=== PATIENT | male | born 1960 | race Caucasian/White ===

== ENCOUNTER 2024-12-24 12:00 | Inpatient (IN) | payer SELFPAY ==
[2024-12-24] VITALS (15 sets, daily range): BP systolic 149–227; BP diastolic 80–116; PULSE 72–97; RESP 14–20; TEMP 36.4–36.8; O2SAT 96–100; BMI 31.5
--- NOTE | ~2024-12-24 | XR_ITS ---
XR abdomen/kub 1V Ordering provider: Ally May III, DO History: . constipation . Comparison: None. FINDINGS: BOWEL: Nonobstructive bowel gas pattern. ORGANOMEGALY: None. SIGNIFICANT PATHOLOGIC CALCIFICATIONS: None. OTHER: No free air is seen under the diaphragm. IMPRESSION: NO ACUTE ABDOMINAL FINDINGS. Reviewed, dictated and finalized at location A.
--- NOTE | ~2024-12-24 | US_ITS ---
EXAMINATION: US renal BI DATE: 12/24/2024 19:22 INDICATION: acute renal failure TECHNIQUE: Multiple grayscale and Doppler ultrasound images of the kidneys were obtained. COMPARISON: None. FINDINGS: The right kidney measures 13.2 x 6.1 x 6.0 cm. The left kidney measures 12.8 x 7.3 x 5.6 cm. The kidn eys demonstrate normal parenchymal echogenicity. Anechoic, lobulated 1.6 cm lesion in the left kidney , with a 9 mm focus of wall echogenicity and twinkle artifact. There is no hydronephrosis. The bladde r is decompressed by Cuevas catheter. Incidental note of a liver hyperechogenicity IMPRESSION: No hydronephrosis. 1.6 cm indeterminate left renal lesion, possibly representing a cyst with wall calcification or adjac ent nephrolith. Recommend timely outpatient CT or MRI without and with contrast for complete evaluati on. Incidental note of and echogenic liver, most commonly due to steatosis but also can be seen with hepa titis and fibrosis Reviewed, dictated and finalized at location K. IMPRESSION: No hydronephrosis. 1.6 cm indeterminate left renal lesion, possibly representing a cyst with wall calcification or adjacent nephrolith. Recommend timely outpatient CT or MRI wit hout and with contrast for complete evaluation. Incidental note of and echogenic liver, most commonly due to steatosis but also can be seen with hepatitis and fibrosis
--- OUTSIDE RECORDS SUMMARY | 2024-12-24 12:03 | XMS_ITS | Clinical Summary ---
Author Organization [facility] [employer] Address [address] [place] [address] Care Team Providers Care Speaking Unit Assembler Name Role Phone Loraine Moss MD Primary Care Provider + Source Comments [facility],non-owned Affiliates and Associated Physician Practices is amultiple site organization consisting of ambulatory clinics and hospital sitesin [place], [place], [place] and [place]. This disclosure is being madepursuant to the Care Everywhere program and may not contain all information available regarding this patient. Last updated 18.[facility] [employer] Allergies No known active allergies Medications * Be aware that medications may not be up to date on this document. Alwaysverify current medications with the patient. 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 Gender Identity Not on file Sexual Orientation Not on file Last Filed Vital Signs Vital Sign Reading Time Taken Comments Blood Pressure 139/93 01/16/2018 1:10 PM CDT Pulse 71 01/16/2018 1:10 PM CDT Temperature 36.4 C (97.5 F) 01/16/2018 11:41 AM CDT Respiratory Rate 24 01/16/2018 1:10 PM CDT Oxygen Saturation 94% 01/16/2018 1:10 PM CDT Inhaled Oxygen Concentration - - Weight 102.1 kg (225 lb) 01/16/2018 11:39 AM CDT Height 180.3 cm (5' 11) 01/16/2018 11:39 AM CDT Body Mass Index 31.38 01/16/2018 11:39 AM CDT Plan of Treatment Health Maintenance Due Date Last Done Comments COLOGUARD (AGES 45-75) - COL ON CA SCREENING 1960 CT COLONOGRAPHY - COLON CA SCREENING 1960 FIT - COLON CA SCREENING 1960 FLEX SIG - COLON CA SCREENING 1960 LIPID TESTING 1960 HIV SCREENING 02/14/1975 HEPATITIS C SCREENING 02/10/1978 DTAP/TDAP/TD VACCINES (1 - Tdap) 02/14/1979 PNEUMOCOCCAL VACCINE 50+ (1 of 1 - PCV) 02/14/2010 ZOSTER VACCINE (1 of 2) 02/14/2010 SCREENING FOR DIABETES 01/17/2018 COLON MONITORING 01/16/2023 01/16/2018, 01/16/2018, 01/16/2018 Colorectal Cancer Screening 01/16/2023 COVID-19 VACCINE (1 - 2023-2 5 season) 2024 DEPRESSION SCREENING 06/13/2024 INFLUENZA VACCINE (#1) 2025 COLONOSCOPY - COLON CA SCREENING 01/17/2028 01/16/2018, 01/16/2018, 01/16/2018 Respiratory Syncytial Virus (RSV) Vaccine Pt: or over 60 yrs (1 - 1-dose 75+ series) 02/14/2035 HEPATITIS B VACCINE Aged Out No longe r eligible based on patient's age to complete this topic HIB VACCINE Aged Out No longer eligi ble based on patient's age to complete this topic HPV VACCINE Aged Out No longer eligi ble based on patient's age to complete this topic MENINGOCOCCAL (Group B) VACCINE SHARED DECISION-MAKING Aged Out No longer eligible based on patient's age to complete this topic MENINGOCOCCAL GROUPS A/C/Y/W VACCINE Aged Out No longer eligible b ased on patient's age to complete this topic Procedures Procedure Name Priority Date/Time Associated Diagnosis Comments ENDOSCOPY, COLON, SCREENING Routine 01/16/2018 12:21 PM CDT from Last 3 Months or Most Recently Relevant to Health Maintenance Results * ENDOSCOPY, COLON, SCREENING (01/16/2018 12:21 PM CDT) Report Endoscopy POC _ Patient Name: Bryon Rodney Procedure Date: 01/16/2018 12:21 PM Date of : 1960 Admit Type: Outpatient Age: 57 Gender: Male Attending MD: Cristopher Singleton MD _ Procedure: Colonoscopy Indications: Screening for colorectal malignant neoplasm Providers: Cristopher Singleton MD (Doctor), Marilynn Johnson, RN, Danica Estrada RN Referring MD: Loraine Moss MD (Referring MD) Medicines: Monitored Anesthesia Care Complications: No immediate complications. _ Procedure: Pre-Anesthesia Assessment: - ASA Grade Assessment: II - A patient with mild systemic disease. - Airway Examination: Mallampati Class I (tonsillar pillars visualized). After I obtained informed consent, the scope was passed under direct vision. Throughout the procedure, the patient's blood pressure, pulse, and oxygen saturations were monitored continuously. The Colonoscope was introduced through the anus and advanced to the cecum, identified by appendiceal orifice and ileocecal valve. The colonoscopy was performed without difficulty. The patient tolerated the procedure well. The quality of the bowel preparation was adequate. Impression: - Diverticulosis. - One 5 mm polyp in the cecum, removed with a hot snare. Resected and retrieved. - One 6 mm polyp in the ascending colon, removed with a hot snare. Resected and retrieved. - Two 5 mm polyps in the transverse colon, removed with a jumbo cold forceps. Resected and retrieved. Findings: Small-mouthed diverticula were found in the colon. A 5 mm polyp was found in the cecum. The polyp was sessile. The polyp was removed with a hot snare. Resection and retrieval were complete. Estimated blood loss: none. A 6 mm polyp was found in the ascending colon. The polyp was sessile. The polyp was removed with a hot snare. Resection and retrieval were complete. Estimated blood loss: none. Two sessile polyps were found in the transverse colon. The polyps were 5 mm in size. These polyps were removed with a jumbo cold forceps. Resection and retrieval were complete. Estimated blood loss: none. _ Recommendation: - Repeat colonoscopy in 5 years for surveillance based on pathology results. Procedure Code(s): --- Professional --- 48914, Colonoscopy, flexible; with removal of tumor(s), polyp(s), or other lesion(s) by snare technique 21546, 59, Colonoscopy, flexible; with biopsy, single or multiple --- Technical --- 54343, Colonoscopy, flexible; with removal of tumor(s), polyp(s), or other lesion(s) by snare technique 83883, 59, Colonoscopy, flexible; with biopsy, single or multiple Diagnosis Code(s): --- Professional --- Z12.11, Encounter for screening for malignant neoplasm of colon D12.0, Benign neoplasm of cecum D12.2, Benign neoplasm of ascending colon D12.3, Benign neoplasm of transverse colon (hepatic flexure or splenic flexure) K57.30, Diverticulosis of large intestine without perforation or abscess without bleeding --- Technical --- Z12.11, Encounter for screening for malignant neoplasm of colon D12.0, Benign neoplasm of cecum D12.2, Benign neoplasm of ascending colon D12.3, Benign neoplasm of transverse colon (hepatic flexure or splenic flexure) K57.30, Diverticulosis of large intestine without perforation or abscess without bleeding CPT copyright 2015 [employer]. All rights reserved. The codes documented in this report are preliminary and upon hydraulic design engineer review may be revised to meet current compliance requirements. Cristopher Singleton MD 01/16/2018 12:53:29 PM This report has been signed electronically. Number of Addenda: 0 Note Initiated On: 01/16/2018 12:21 PM [facility] ENDOSCOPY 01/16/2018 12:2 1 PM CDT us Cristopher Singleton MD GI PROCEDURE ORDERABLES Edited R esult - Final [facility] ENDOSCOPY from Last 3 Months or Most Recently Relevant to Health Maintenance Insurance Care Teams Speaking Unit Assembler Relationship Specialty Start Date End Date Loraine Moss MD PCP - General Internal Medicine 11/22/17
--- OUTSIDE RECORDS SUMMARY | 2024-12-24 12:03 | XMS_ITS | Data Portability ---
Author Organization [facility] [employer], [facility] Address [address] [place] [phone] Care Team Providers Care Cognos Bi Administrator Name Role Phone MUNIRA CAI Primary Care Provider Unavailabl e Assessment No assessment recorded. Plan of Treatment Reminders Order Date Submit Date Provider Last Modified By Organization Details Last Modified Time Details Appointments None recorded. Lab None recorded. Referral None recorded. Procedures None recorded. Surgeries None recorded. Imaging US, upper extremity, nonvascular 2016 017 Not available 7 06:07:24 XR, shoulder 2016 017 [email or web address] Not available 7 13:11:24 Medication Orders None recorded. Patient TargetsNo targets recorded. Patient Instructions Encounter Date Encounter Id Patient Instructions Last Modified By Organization Details Last Modified Time 09/28/2016 [id number] shoulder pain: c are instructions BERYL Not available 10/31/2016 05:01:20 After review of radiographic and examination findings, we discussed treatment options available. These included corticosteroid injection,bracing, observation, surgical referral, physical therapy, pain management, and/or stem cell treatment. The patient is definitely interested in non-surgical alternatives. If they choose to undergo stem cell biologic treatment, it is understood that it is considered investigational and off label use of the product by FDA, that it is not a covered benefit by insurance, and that there is no guarantee of symptom improvement. We reviewed the stem cell treatment and depth. Information packet was given to and reviewed with the patient. All questions were answered related to the procedure, post procedure expectations, and cost associated with treatment. We also discussed that sometimes more than one biologic treatment is required to attain desired efficacy. If opting to undergo biologic treatment, an order was given for laboratory studies to be completed. They will call our office if they desire to schedule an appointment for treatment or review any of the other treatment options discussed. Patient will also RTC or call for any worsening, questions or concerns prn. Bryon is opting to undergo prolonged treatment to the left shoulder. We will get him set up for such treatment and discuss costs associated with treatment. Not available 11/09/2016 04:40:39 09/29/2016 [id number] After review of examination findings, we discussed further treatment options and their risks, benefits, projected outcomes, and proposed rehabilitation. These options included: continued monitoring, corticosteroid injection, viscosupplementatio n, surgical referral, physical therapy, further diagnostic workup, pain management, and/or biologic treatment. We proceeded with Prolo tx to the left shoulder per procedural note above and with consent. He tolerated the procedure well. He will call in one week to report status or sooner prn. Repeat in one month prn. Not available 10/02/2016 05:46:54 11/09/2016 [id number] After review of examination findings, we discussed further treatment options and their risks, benefits, projected outcomes, and proposed rehabilitation. These options included: continued monitoring, corticosteroid injection, viscosupplementatio n, surgical referral, physical therapy, further diagnostic workup, pain management, and/or biologic treatment. Not available 12/10/2016 08:26:38 Reason for Referral None Reported. Problems Name Problem SNOMED Code Status Onset Date Resolution Date Notes Provider Name and Address Organization Details Recorded Time Ead cain 180422170 Active [address] [facility] [employer] 09/28/2016 11:54:21 Problem Notes None recorded. Procedures Surgical History Date Name Laterality Status Provider Name and Address Organization Details Recorded Time 09/30/19 17 Generic Procedure completed James Song [employer] 11/09/2016 04:42:08 06/13/19 01 Arthroscopic Surgery completed [employer]ise [employer] 09/28/2016 11:55:13 06/13/18 85 Arthroscopic Surgery completed [facility] 09/28/2016 11:54:58 Imaging Results None recorded. Procedure Notes None recorded. Medical Equipment None Reported. Allergies No known drug allergies Medications Name Sig Start Date Stop Date Status Note LastModified by Organization Details LastModified Time ipratropium bromide 42 mcg (0.06 %) nasal spray active Not Available Not Available Not Available Vitals Date Recorded Body height Body weight Body mass index (BMI) Heart rate Systolic And Diastolic Provider Name and Address Organization Details Last Updated DateTime 09/28/2016 180.34 cm 698183.2 8 g 31.4 kg/m2 73 /min 138/88 mm[Hg] Carly Moise [facility] 09/28/2016 11:06:36 Date Recorded Body height Body weight Body mass index (BMI) Heart rate Systolic And Diastolic Provider Name and Address Organization Details Last Updated DateTime 09/29/2016 180.34 cm 705158.2 8 g 31.4 kg/m2 65 /min 153/74 mm[Hg] Narciso Ar[facility] 09/29/2016 13:33:18 Date Recorded Body height Provider Name an d Address Organization Details Last Updated DateTime 11/09/2016 180.34 cm Narciso [facility] 11/10/2016 07:52:31 Social History None recorded. Functional Status None recorded. Mental Status None recorded. Family History Nothing Reported. Medical History Condition Response Sleep Disorder Y Past Encounters Encounter ID Performer Location Encounter Start Date Encounter Closed Date Diagnosis/Indication Diagnosis SNOMED-CT Code Diagnosis ICD10 Code Diagnosis Note [id number] Felipa Cantu MD [facility] [address] [place] [address] 09/28/2016 10:33:36 09/29/2016 13:11:24 Pain of shoulder region 21267730 M25.512 Left shoulder pain consistent with: Moderate glenohumer al and acromiocla vicular osteoarthr itis; Subscapula ris and supraspina tus and body port insertion of tendinosis with partial-th ickness tear; mild biceps tendinosis ; Subdeltoid bursitis; Status post shoulder arthroscop y capsular tightening . External rotation limitation s post surgical capsular reconstruc tion. Disorder o f rotator cuff 169574330 M75.102 Osteoarthr itis of shoulder region 76283331 M19.019 [id number] Felipa Cantu MD [facility] [address] [place] [address] 09/29/2016 13:21:16 10/06/2016 09:43:22 Rotator cuff syndrome 0942086 M75.102 left shoulder [id number] Felipa Cantu MD [facility] [address] [place] [id number] 11/09/2016 17:14:57 11/09/2016 18:30:02 Disorder of rotator cuff 807536256 M75.102 Health Concerns Section Related Observation LastModified by Organization Detai ls LastModified Time None Recorded Concern Status LastModified by Organization Details LastModified Time None Recorded Advance Directives Directive None Recorded Payers Insurance Date Sequence Insurance Name Policy Number Policy Boone Covered Member ID Boone Member ID Guarantor Name 11/06/2016 1 [employer] [id number] Bryon Rashaun [id number] Bryon Rodney Notes Date Note Type Note Provider Name and Address Organization Details Recorded Time 09/28/2016 text/html Bryon is a [facility] 56-year-old kpjhn-uvjt-okjtenic male who presents to clinic today for evaluation of left shoulder pain. Bryon is well-known to me. I have seen him before in my clinic office for treatment to his left knee. He has a chronic issue with his shoulder. He ssustained an injury to his shoulder in 1986 and had left shoulder arthroscopy. He did well after surgery but did have some instability issues. He saw a Dr. Edgard Vides, And he was undergoing prolotherapy with the left shoulder. He had approximately 40 therapy injections to the shoulder from 80 12/12/00. Then in 2000 he had joint capsular reconstruction surgery by Dr. Richter. Although he did well from a pain standpoint he did lose some mobility and his difficulty with external rotation activities since surgery. He has pain and grinding with overhead activity. He has a constant dull ache with intermittent sharp episodes of pain especially with extremes of range of motion. He is also starting to get some weakness associated with decreased shoulder. He is here essentially to be reevaluated and discussed the possibility of prolonged treatment to his shoulder. He did well with this in the past and he would like to start more conservative treatment as opposed to surgical intervention. LUIS Zurita [facility], [facility] 11/09/2016 04:40:44 09/29/2016 text/html No interval schuster ge - See last visit note James LUIS Hoff [facility], [facility] 11/09/2016 04:42:24 11/09/2016 text/html Here for second PROLO injection to the left shoulder. He has had some improvement from initial injection. Still with some pain with overhead activity and pushing off. LUIS Zurita [facility], [facility] 12/10/2016 08:27:52
--- OUTSIDE RECORDS SUMMARY | 2024-12-24 12:03 | XMS_ITS | Clinical Summary ---
Author Organization 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
--- OUTSIDE RECORDS SUMMARY | 2024-12-24 12:03 | XMS_ITS | Referral Summary ---
Author Organization [facility] Address [address] [place] [phone] Care Team Providers Care Database Tester Name Role Phone Loraine Moss MD Primary Care Provider [phone] Allergies No known active allergies Medications ondansetron ODT (ZOFRAN-ODT) 4 mg disintegrating tablet DISSOLVE ONE TABLET IN MOUTH EVERY 6 TO 8 HOURS NEEDED FOR NAUSEA 02/25/20 22 Active testosterone cypionate, micro (testosterone cyp, micro, bulk,) 100 % powder 0 04/05/20 22 Active testosterone cypionate, bulk, 100 % powder 0 04/05/20 22 Active ipratropium (ATROVENT) 42 mcg (0.06 %) nasal spray ipratropium bromide 42 mcg (0.06 %) nasal spray Active oxyCODONE-acetamin ophen (PERCOCET) 10-325 mg per tablet take 1 tablet by mouth every 4 to 6 hours as needed for pain, please take with sennakot-s or miralax or other stool softener daily while taking 02/25/20 22 Active doxycycline hyclate 100 mg capsule TAKE ONE CAPSULE BY MOUTH TWICE DAILY FOR 3 DAYS 02/25/20 22 Active Active Problems Problem Noted Date Diagnosed Date 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 Nares patent. Afrin added. 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
--- OUTSIDE RECORDS SUMMARY | 2024-12-24 12:03 | XMS_ITS | Clinical Summary ---
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 Gender Identity Not on file Sexual Orientation Not on file Obstetrics History Plan of Treatment Health Maintenance Due Date Last Done Comments Colon Cancer Screening-Colonoscopy 1960 Depression Screening 1960 Hepatitis C Screening 1960 Prostate Cancer Screening-PSA 1960 DTaP/Tdap/Td Vaccine (1 - Tdap) 02/14/1971 Hepatitis B Screening 02/14/1978 Regular Well Visit/Exam 18-64 02/14/1978 Zoster Vaccine (1 of 2) 02/14/2010 Covid-19 Vaccine (3 2023-2 5 season) 2024 10/31/2020, 10/09/2020 Influenza Vaccine (#1) 2025 Pneumococcal vaccine <65 Aged Out No longer eligible based on patient's age to complete this topic Care Teams Cleaner Laboratory Equipment Relationship Specialty Start Date End Date Loraine Moss MD [address] [place] [address] PCP - General Internal Medicine 04/06/22
--- OUTSIDE RECORDS SUMMARY | 2024-12-24 12:03 | XMS_ITS | Patient Health Record ---
Author Organization [facility] Address [address] [place], [place] [id number] Care Team Providers Care Ivf Embryologist Name Role Phone EMELY JOHNSON Unavailable [phone] Loraine Moss Unavailable Unavailable Reason For Referral No Information Medications Medication SIG (Take, Route, Frequency, Duration) Notes Start Date End Date Status ciclopirox 80 MG/ML Topical Solution [Pen[place] Nail Lacquer] ciclopirox 80 MG/ML Topical Solution [[place] Nail Lacquer]Original Medicationciclopirox 80 MG/ML Topical Solution [[place] Nail Lacquer] *Reorder from [place] for eRx and Interaction Alerts* 09/02/2017 Active Plan Of Treatment No Information Insurance Providers Payer Name Payer Address Payer Phone Subscriber Number Group Number Insured Name Patient Relationship to Insured Coverage Start Date Coverage End Date [facility] ATTN CLAIMS [address] [place] [address] [id number] MIRNA LEVI Self - patient is the insured
--- NOTE | 2024-12-24 12:23 | ED.NAVMDI ---
HPI - Nausea/Vomiting/Diarrhea General Chief complaint: Nausea/Vomiting/Diarrhea Stated complaint: poss uti Time Seen by Provider: 12/24/24 12:15 History of Present Illness HPI Narrative: Pt presents with intermittent urinary frequency and urgency and intermittent incontinence for a month. Pt tried to get into his PCP today but not able to get in. Pt also complains of dark stool several weeks ago but now brown but not regular and says they are hard now but does not feel constipated. Pt has als noted his BP is a little elevated lately. Related Data Allergies Allergy/AdvReac Type Severity Reaction Status Date / Time No Known Allergies Allergy Unverified 12/24/24 12:05 Review of Systems Review of Systems: All systems reviewed & are unremarkable except as noted in HPI and below PMFSH Past Medical History Medical History BPH (benign prostatic hyperplasia) Social History Social History Smoking status: Never smoker Alcohol intake: current Exam Const: General: healthy appearing and no acute distress Nutritional Appearance: well nourished Orientation/consciousness: patient oriented x3 Limitations: no limitations HENMT: Head: normal to inspection Throat: posterior oropharynx normal Neck: Neck: normal visual inspection Chest: Chest palpation & inspection: normal inspection of the chest Resp: Effort & Inspection: normal respiratory effort Auscultation: clear to auscultation bilaterally Cardio: Rate: regular rate Rhythm: regular rhythm GI: GI Palp: Yes Soft to palpation and Yes Tenderness to palpation present (GI) (minimal suprpubic) Auscultation: normal bowel sounds : General: Yes no CVA tenderness Back/Spine/Pelvis: Back: no CVA tenderness Skin: General skin exam: normal color Rashes: no rashes Wounds: no wounds Neuro: General: patient oriented x3, moves all extremities, no meningeal signs and no focal motor deficits Speech: normal speech Extrem: General: normal to inspection and no clubbing, cyanosis or edema Psych: Mental Status: mental status grossly normal Affect: normal affect Attitude: cooperative Course Vital Signs Vital signs: Vital Signs Temperature 97.6 F 12/24/24 12:01 Pulse Rate 95 12/24/24 12:01 Respiratory Rate 16 12/24/24 12:01 Blood Pressure 227/116 H 12/24/24 12:01 Pulse Oximetry 98 12/24/24 12:01 Temperature 97.5 F L 12/24/24 19:26 Pulse Rate 75 12/24/24 19:26 Respiratory Rate 18 12/24/24 19:26 Blood Pressure 149/88 H 12/24/24 19:26 Pulse Oximetry 98 12/24/24 19:26 Oxygen Delivery Room Air 12/24/24 12:33 MDM - Nausea/Vomiting/Diarrhea MDM Narrative Medical decision making narrative: Pt presents with urinary urgency and incontinence for a month. Pt does have BPH hx could be this but will make sure no UTI and check labs to assess renal function and a KUB to assess stool volume. Pt had 1600 ml in bladder on scan, chanel placed and drained 2 L quickly, chanel clamped, released 20 minutes later and another 300 ml and reclamped. discussed with Dr Dejesus and said can unclamp and let run, will consult but not much to do. Will contact Dr Mercedes. Jarvis Carrero agrees to admit if Dr Mercedes accepts. Dr Mercedes will consult Lab Data 12/24/24 12:41 12/24/24 12:41 Labs: Lab Results 12/24/24 12/24/24 Range/Units 12:41 12:52 WBC 5.6 (4.5-10.0) K/mm3 RBC 4.13 L (4.6-6.20) M/mm3 Hgb 11.5 L (14.0-18.0) g/dL Hct 35.6 L (42.0-52.0) % MCV 86.2 (80-100) fl MCH 27.8 (26-34) pg MCHC 32.3 (32-36) g/dl RDW 14.1 (11.5-14.5) % Plt Count 124 L (150-375) k/mm3 MPV 10.6 H (7.4-10.4) fl Immature Gran % (Auto) 0.5 (0-0.5) % Neut % (Auto) 70.1 (45.5-73.1) % Lymph % (Auto) 11.7 L (18.3-44.2) % Bartholomew % (Auto) 11.0 H (2.6-8.5) % Eos % (Auto) 6.2 H (0-4.4) % Baso % (Auto) 0.5 (0.2-1.2) % Lymph # (Auto) 0.66 L (0.9-3.2) K/mm3 Bartholomew # (Auto) 0.6 (0.1-0.6) K/mm3 Eos # (Auto) 0.4 H (0-0.3) K/mm3 Baso # (Auto) 0.0 (0.0-0.1) K/mm3 Abs Immat Gran (auto) 0.03 (0.00-0.031) K/mm3 Absolute Neuts (auto) 4.0 (1.3-6.7) K/mm3 Absolute Nucleated RBC 0.000 (0.0-0.012) K/mm3 Nucleated RBC % 0.0 (0.0-0.2) % Sodium 140 (137-145) mmol/L Potassium 6.2 H* (3.4-5.0) mmol/L Chloride 110 H (98-107) mmol/L Carbon Dioxide 12 L (22-30) mmol/L Anion Gap 18 H (4-12) mmol/L BUN 127 H* (9-20) mg/dL Creatinine > 14.00 H (0.7-1.3) mg/dL Estim Creat Clear Calc 6 ml/min Estimated GFR 4 L (59 - ) Glucose 128 H (65-110) mg/dL Calcium 9.6 (8.4-10.2) mg/dL Total Bilirubin 0.6 (0.2-1.3) mg/dL AST 23 (17-59) U/L ALT 60 H (6-50) U/L Alkaline Phosphatase 70 (38-126) U/L Total Creatine Kinase 59 (55-170) U/L C-Reactive Protein 1.5 H (<1.0) mg/dL Total Protein 7.2 (6.3-8.2) g/dL Albumin 4.3 (3.5-5.1) g/dL Urine Color Yellow (Yellow) Urine Appearance Clear (Clear) Urine pH 5.0 (5.0-9.0) Ur Specific [place] 1.012 (1.001-1.035) Urine Protein Negative (Negative) mg/dL Urine Glucose (UA) Negative (Negative) mg/dL Urine Ketones Negative (Negative) mg/dL Ur Blood (Man) 2+ H (Negative) Urine Nitrate Positive H (Negative) Urine Bilirubin Negative (Negative) Urine Urobilinogen 0.2 (<2.0) mg/dL Add Ur Microanalysis Reviewed Leukocyte Esterase Rfl 2+ H (Negative) MICKY/UL Urine RBC 0-2 (0-2) /hpf Urine WBC 11-20 H (0-3) /hpf Ur Squamous Epith Cells None seen (Few) /hpf Urine Bacteria None seen /hpf Urine Casts 0-2 ECG Data EKG #1: Interpretation: nsr rate [address] or t wave changes nl axis no prior ekg for comparison Discharge Plan Discharge Clinical Impression: Lower obstructive uropathy, Acute kidney failure, Acute UTI Patient Disposition: Still a Patient Condition: Stable
[2024-12-24 12:47] LABS: Hematocrit 35.6 % (42.0-52.0); Hemoglobin 11.5 g/dL (14.0-18.0); Immature Granulocyte Percent A 0.5 % (0-0.5); Lymphocytes Absolute Auto 0.66 K/mm3 (0.9-3.2); Mean Corpuscular HGB Conc 32.3 g/dl (32-36); Mean Corpuscular Hemoglobin 27.8 pg (26-34); Mean Corpuscular Volume 86.2 fl (80-100); Nucleated Red Blood Cells Absolute Auto 0.000 K/mm3 (0.0-0.012); Nucleated Red Blood Cells Perc 0.0 % (0.0-0.2); Platelet Count Result 124 k/mm3 (150-375); Red Blood Count 4.13 M/mm3 (4.6-6.20); White Blood Count 5.6 K/mm3 (4.5-10.0)
[2024-12-24 13:12] LABS: Alanine Aminotransferase 60 U/L (6-50); Albumin Level 4.3 g/dL (3.5-5.1); Alkaline Phosphatase 70 U/L (38-126); Anion Gap 18 mmol/L (4-12); Aspartate Amino Transferase 23 U/L (17-59); Bilirubin,Total 0.6 mg/dL (0.2-1.3); Calcium 9.6 mg/dL (8.4-10.2); Carbon Dioxide 12 mmol/L (22-30); Chloride 110 mmol/L (98-107); Estimated CRCL calculation 6 ml/min; Estimated Glomerular Filt Rate 4; Glucose 128 mg/dL (65-110); Potassium 6.2 mmol/L (3.4-5.0); Sodium 140 mmol/L (137-145); Total Protein 7.2 g/dL (6.3-8.2)
--- NOTE | 2024-12-24 13:20 | ECG_ITS ---
Test Date: 2024-12-24 14:15:00 Measurements Intervals [place] Rate: 76 P: 48 MD: 142 QRS: 26 QRSD: 87 T: 37 QT: 344 QTc: 388 Interpretive Statements SINUS RHYTHM NORMAL ELECTROCARDIOGRAM No previous ECG available for comparison Electronically Signed On 12-25-2024 10:00:12 CDT by Ayaan Mcfarlane M.D.
[2024-12-24 13:32] LABS: Add Urine Microscopic? YES; Appearance Urine Clear (Clear); Glucose Urine UA Negative (Negative); Leukocyte Esterase Ur 2+ LEU/UL (Negative); Need Manual Microscopic Reviewed; Nitrate Urine Positive (Negative); Non Pathogenic Casts 0-2; Specific Grav Ur 1.012 (1.001-1.035)
[2024-12-24] MEDS: CALCIUM GLUC 1,000 MG/NS 50 ML 1,000 MG/50 ML BAG 100 MG IVPB (13:53)
[2024-12-24 13:58] LABS: Blood Urea Nitrogen 127 mg/dL (9-20)
[2024-12-24] MEDS: SODIUM BICARBONATE 8.4% 50 MEQ/50 ML SYRINGE IV PUSH (14:25)
[2024-12-24] MEDS: DEXTROSE 50% 25 GM/50 ML SYRINGE IV PUSH (14:27)
[2024-12-24] MEDS: INSULIN HUMAN REGULAR (*BKC) 100 UNITS/ML IV PUSH (14:29)
--- NOTE | 2024-12-24 14:50 | WPDURCON ---
Assessment and Plan Assessment and plan (1) Enlarged prostate with urinary retention: Code(s): N40.1 - Benign prostatic hyperplasia with lower urinary tract symptoms; R33.8 - Other retention of urine Status: Acute (2) Acute kidney failure: Code(s): N17.9 - Acute kidney failure, unspecified Status: Acute (3) Suspected UTI: Code(s): R39.89 - Other symptoms and signs involving the genitourinary system Status: Acute Plan Pleasant 64yoM with large-volume acute urinary retention with post-void residual of 1653 mL, likely secondary to significant prostatomegaly (known BPH). This has led to obstructive uropathy and subsequent acute renal failure (creatinine >14). Urinalysis is suspicious for a urinary tract infection. - Maintain indwelling Cuevas catheter, off tension. The catheter will be continued upon discharge for a minimum of 7-14 days to allow for bladder decompression. - Monitor for post-obstructive diuresis. - Nephrology has been consulted to manage acute renal failure. Recommend a renal ultrasound if function does not improve with bladder decompression. - Start empiric antibiotics for suspected urinary tract infection. - Initiate tamsulosin at bedtime and finasteride in the morning to treat BPH. These medications should be continued upon discharge. I counseled patient on medication compliance. - Outpatient urology follow-up is recommended for formal prostate evaluation and discussion of definitive surgical management options, which may include Aquablation, Holmium Laser Enucleation of the Prostate (HoLEP), or prostate artery embolization. He was counseled that he may follow up with his previous urologist at [facility] or can establish care with [facility] [place]. Patient elects to follow up with [facility] due to insurance limitations. Case discussed with Dr. Dejesus Urology Consult Note HPI Date Seen: 12/24/24 Primary Care Provider: UNKNOWN,DOCTOR Consult Narrative Reason for consult: Acute urinary retention, enlarged prostate Narrative: Mr. Bryon Rodney, is a 64-year-old male with a known history of benign prostatic hyperplasia (BPH) who presents for inpatient urology consultation. He reports having difficulty urinating. He was seen by a different urology group approximately two years ago, at which time he was informed his prostate was 130 grams following a 3T MRI, which was negative for malignancy. He is not currently on any medications for BPH, such as tamsulosin or finasteride. He was previously on testosterone for a short period to help with joint issues but discontinued it due to an elevated hematocrit and PSA. He reports nocturia once or twice nightly and recent intermittent urinary frequency, urgency, and overflow incontinence for one month. He also notes dark stools several weeks ago, which are now brown and hard. He denies any family history of prostate, breast, kidney, or bladder cancer, but his father had his prostate worked on for a non-cancerous issue. -PERTINENT LABS: 12/24/2024 - WBC 5.6, HGB 11.5, PLT 124, Cr >10, K 6.2 12/24/2024 - Urinalysis: 2+ LE, Nitrate +, 2+ blood; Microscopy: 11-20 WBC, 0-2 RBC; Urine culture pending -PERTINENT IMAGIN12/24/2024 XR abdomen/kub ([facility]) - Nonobstructive bowel gas pattern. No acute abdominal findings. Review of Systems Constitutional: Constitutional: Reports no additional constitutional complaints Eyes: Eyes: Reports no additional eye complaints ENT: Reports Normal hearing present Cardiovascular: Cardiovascular: Denies chest pain Gastrointestinal: Gastrointestinal: Reports as per HPI Genitourinary: Genitourinary: Reports as per HPI Musculoskeletal: Musculoskeletal: Reports no additional musculoskeletal complaints PMFSH Social History Social History Smoking status: Never smoker Alcohol intake: current Meds Home Medications and Allergies Allergies Allergy/AdvReac Type Severity Reaction Status Date / Time No Known Allergies Allergy Unverified 12/24/24 12:05 Vital Signs Vital Signs - 24 hr 12/24/24 12:01 12/24/24 12:17 12/24/24 12:30 Temperature 97.6 F Pulse Rate 95 89 81 Respiratory Rate 16 16 19 Blood Pressure 227/116 H 190/84 H 180/84 H Pulse Oximetry 98 97 97 Oxygen Delivery 12/24/24 12:33 12/24/24 13:02 12/24/24 13:30 Temperature Pulse Rate 79 82 73 Respiratory Rate 16 17 15 Blood Pressure 180/84 H 187/91 H 162/80 H Pulse Oximetry 96 97 97 Oxygen Delivery Room Air 12/24/24 14:00 Temperature Pulse Rate 79 Respiratory Rate 19 Blood Pressure 184/94 H Pulse Oximetry 98 Oxygen Delivery Exam Narrative: Patient comfortable on exam in the ER, No acute distress, No shortness of breath Indwelling Cuevas draining pale pink urinary output Results Labs 12/24/24 12:41 12/24/24 12:41 Labs: Short CBC 12/24/24 Range/Units 12:41 WBC 5.6 (4.5-10.0) K/mm3 Hgb 11.5 L (14.0-18.0) g/dL Hct 35.6 L (42.0-52.0) % Plt Count 124 L (150-375) k/mm3 BMP 12/24/24 12:41 Sodium 140 Potassium 6.2 H* Chloride 110 H Carbon Dioxide 12 L BUN 127 H* Creatinine > 14.00 H Glucose 128 H Calcium 9.6 Liver Function 12/24/24 Range/Units 12:41 Total Bilirubin 0.6 (0.2-1.3) mg/dL AST 23 (17-59) U/L ALT 60 H (6-50) U/L Alkaline Phosphatase 70 (38-126) U/L Albumin 4.3 (3.5-5.1) g/dL Urine 12/24/24 Range/Units 12:52 Urine Color Yellow (Yellow) Urine Appearance Clear (Clear) Urine pH 5.0 (5.0-9.0) Ur Specific [place] 1.012 (1.001-1.035) Urine Protein Negative (Negative) mg/dL Urine Glucose (UA) Negative (Negative) mg/dL
--- NOTE | 2024-12-24 15:06 | WPDURCON ---
Urology Consult Note HPI Date Seen: 12/24/24 Primary Care Provider: UNKNOWN,DOCTOR Consult Narrative Narrative: Bryon Rodney is a 64 year old male [facility] Social History Social History Smoking status: Never smoker Alcohol intake: current Meds Home Medications and Allergies Allergies Allergy/AdvReac Type Severity Reaction Status Date / Time No Known Allergies Allergy Unverified 12/24/24 12:05 Vital Signs Vital Signs - 24 hr 12/24/24 12:01 12/24/24 12:17 12/24/24 12:30 Temperature 97.6 F Pulse Rate 95 89 81 Respiratory Rate 16 16 19 Blood Pressure 227/116 H 190/84 H 180/84 H Pulse Oximetry 98 97 97 Oxygen Delivery 12/24/24 12:33 12/24/24 13:02 12/24/24 13:30 Temperature Pulse Rate 79 82 73 Respiratory Rate 16 17 15 Blood Pressure 180/84 H 187/91 H 162/80 H Pulse Oximetry 96 97 97 Oxygen Delivery Room Air 12/24/24 14:00 Temperature Pulse Rate 79 Respiratory Rate 19 Blood Pressure 184/94 H Pulse Oximetry 98 Oxygen Delivery Results Labs 12/24/24 12:41 12/24/24 12:41 Labs: Short CBC 12/24/24 Range/Units 12:41 WBC 5.6 (4.5-10.0) K/mm3 Hgb 11.5 L (14.0-18.0) g/dL Hct 35.6 L (42.0-52.0) % Plt Count 124 L (150-375) k/mm3 BMP 12/24/24 12:41 Sodium 140 Potassium 6.2 H* Chloride 110 H Carbon Dioxide 12 L BUN 127 H* Creatinine > 14.00 H Glucose 128 H Calcium 9.6 Liver Function 12/24/24 Range/Units 12:41 Total Bilirubin 0.6 (0.2-1.3) mg/dL AST 23 (17-59) U/L ALT 60 H (6-50) U/L Alkaline Phosphatase 70 (38-126) U/L Albumin 4.3 (3.5-5.1) g/dL Urine 12/24/24 Range/Units 12:52 Urine Color Yellow (Yellow) Urine Appearance Clear (Clear) Urine pH 5.0 (5.0-9.0) Ur Specific [place] 1.012 (1.001-1.035) Urine Protein Negative (Negative) mg/dL Urine Glucose (UA) Negative (Negative) mg/dL
--- NOTE | 2024-12-24 15:33 | P.HP_ITS ---
H&P: HPI History of Present Illness Date/Time: 12/24/24 15:33 Chief Complaint: Nausea, Urinary Symptoms Narrative: 64 y/o M with PMH of BPH presents here with nausea, urinary frequency/urgency, and intermittent incontinence. The patient presents here on 12/24 for further evaluation of nausea, urinary frequency, urinary urgency, and intermittent incontinence. He reports these urinary symptoms have been ongoing for the past month. He has a past medical history significant for BPH. He reports he has previously seen Urology at which time he was told he had BPH. He was previously worked up for prostate cancer which was negative. He denies any family history of prostate, kidney, or bladder cancer. He is not currently on any daily medications for his BPH. He denies accompanying fever, chills, body aches, abdominal distention, or hematuria. Initial VS at presentation: 97.6? F, HR 95, R 16, 227/116, and 98% on RA. ED workup showed: No leukocytosis, hemoglobin 11.5, potassium 6.2, BUN 127, creatinine greater than 14, GFR 4 (no previous available for comparison), glucose 128, UA suspicious for UTI. Review of Systems Review of Systems: All systems reviewed & are unremarkable except as noted in HPI and below PMFSH Past Medical History Medical History Hernia BPH (benign prostatic hyperplasia) Surgical History Surgical History History of mandibular surgery History of shoulder surgery Family History Family History Father Congestive heart failure Mother Aneurysm Social History Social History Smoking status: Never smoker Alcohol intake: current Drinks per week: 4 Substance use: never Do You Feel Safe in your Home?: Yes Lack of Transportation: No Lack of Food: Never True Current Housing: I Have Housing Concerned About Future Housing: No Difficulty Paying Gas/Electric Bills: No Difficulty Paying for Meds: No Currently Unemployed: No Education: Trade/Vocational Certificate Difficulty w/ Childcare or Family Care: No Spiritual care concerns: No Meds Home Medications and Allergies Home Medications ?Medication ?Instructions ?Recorded ?Confirmed ?Type No Home Medications 12/24/24 12/24/24 History Allergies Allergy/AdvReac Type Severity Reaction Status Date / Time No Known Allergies Allergy Unverified 12/24/24 12:05 Vital Signs Vital Signs - 24 hr 12/24/24 12:01 12/24/24 12:17 12/24/24 12:30 Temperature 97.6 F Pulse Rate 95 89 81 Respiratory Rate 16 16 19 Blood Pressure 227/116 H 190/84 H 180/84 H Pulse Oximetry 98 97 97 Oxygen Delivery 12/24/24 12:33 12/24/24 13:02 12/24/24 13:30 Temperature Pulse Rate 79 82 73 Respiratory Rate 16 17 15 Blood Pressure 180/84 H 187/91 H 162/80 H Pulse Oximetry 96 97 97 Oxygen Delivery Room Air 12/24/24 14:00 Temperature Pulse Rate 79 Respiratory Rate 19 Blood Pressure 184/94 H Pulse Oximetry 98 Oxygen Delivery Exam Const: General: comfortable and no acute distress Other: , male, nontoxic appearance HENMT: Face/Nose/Sinus: Normal nares present Mouth: Yes moist mucous membranes Eyes: General: appearance normal, both eyes and all related structures Sclera: sclerae normal Pupils: Equal, round and reactive pupils present EOM: EOMs intact bilaterally Resp: Effort & Inspection: normal respiratory effort Auscultation: clear to auscultation bilaterally Cardio: Rate: regular rate Rhythm: regular rhythm Other: S1-S2 present without murmur, rub, ectopy GI: Other: Abdomen soft, nondistended, nontender. Normoactive bowel sounds in all quadrants. Urinary Catheter: Urinary Catheter: patent and draining, urine red and urine with clots Skin: General skin exam: normal color and no rashes or lesions noted Wou nds: no wounds Neuro: Speech: normal speech Motor exam (neuro): 5/5 motor strength present throughout Sensory Exam: normal sensation Other: A&O x4 Extrem: General: normal to inspection Psych: Mental Status: mental status grossly normal Affect: normal affect Other: Good insight and judgment, pleasant H&P: Results Labs Labs: Short CBC 12/24/24 Range/Units 12:41 WBC 5.6 (4.5-10.0) K/mm3 Hgb 11.5 L (14.0-18.0) g/dL Hct 35.6 L (42.0-52.0) % Plt Count 124 L (150-375) k/mm3 BMP 12/24/24 12:41 Sodium 140 Potassium 6.2 H* Chloride 110 H Carbon Dioxide 12 L BUN 127 H* Creatinine > 14.00 H Glucose 128 H Calcium 9.6 Liver Function 12/24/24 Range/Units 12:41 Total Bilirubin 0.6 (0.2-1.3) mg/dL AST 23 (17-59) U/L ALT 60 H (6-50) U/L Alkaline Phosphatase 70 (38-126) U/L Albumin 4.3 (3.5-5.1) g/dL Urine 12/24/24 Range/Units 12:52 Urine Color Yellow (Yellow) Urine Appearance Clear (Clear) Urine pH 5.0 (5.0-9.0) Ur Specific [place] 1.012 (1.001-1.035) Urine Protein Negative (Negative) mg/dL Urine Glucose (UA) Negative (Negative) mg/dL Assessment and Plan Assessment and plan (1) Acute kidney failure: Qualifiers: Acute renal failure type: unspecified Qualified Code(s): N17.9 - Acute kidney failure, unspecified Code(s): N17.9 - Acute kidney failure, unspecified Status: Acute Assessment and Plan: - creatinine greater than 14, BUN 127, GFR 4. No previous available for comparison. - renal ultrasound - add CK, urine sodium/potassium, protein/creatinine, urine osmolality - UA suggestive of UTI, see below - bladder scan in ED showed 1600 mL on 12/24, chanel placed on 12/24 with 2L out - monitor I&Os - hold xander inhibitors and diuretics as appropriate - nephrology consultation, awaiting recs Suspect acute renal failure secondary to obstructive uropathy due to BPH. Chanel placed. Will start aggressive IV fluids. Nephrology consulted. (2) Enlarged prostate with urinary retention: Code(s): N40.1 - Benign prostatic hyperplasia with lower urinary tract symptoms; R33.8 - Other retention of urine Status: Acute Assessment and Plan: - started on Flomax - Urology consulted Maintain indwelling Chanel catheter, will need to be maintained 70 14 days post discharge for bladder decompression Start empiric antibiotics for suspected UTI Initiate tamsulosin and finasteride Will need outpatient urology follow-up for definitive surgical management options, can follow up with his previous urologist at [facility] or [facility]. [facility] (3) Suspected UTI: Code(s): R39.89 - Other symptoms and signs involving the genitourinary system Status: Acute Assessment and Plan: - UA: 2+ blood, positive nitrates, 2+ leuks, 11-20 WBC with no epithelial cells or bacteria - UC pending - no previous micro available for review - started on Ceftriaxone on 12/24 Plan Diet: Renal GI Prophylaxis: NA DVT Prophylaxis: SCDs IV fluids: 1L bolus -> LR at 200 mL/hr x2L Lines/Tubes: Peripheral IV, Chanel Code Status: Full code Quality VTE Prophylaxis VTE prophylaxis: mechanical ordered Hospitalist MIPS Advance Care Plan I have confirmed that the patient's Advanced Care Plan is present, code status is documented, or surrogate decision maker is listed in patient medical record.: Yes Medication Reconciliation I have utilized all available resources to obtain, update and review the patients current medications (includes all prescriptions, OTC, herbals, cannabis, and nutritional supplements).: Yes
[2024-12-24] MEDS: cefTRIAXone 1 GM in SODIUM CHLORIDE 0.9% IV 50 ML 100 ML IVPB (17:49)
[2024-12-24] MEDS: SODIUM CHLORIDE 0.9% IV 1,000 ML 999 ML IV CONT (17:52)
[2024-12-24] MEDS: LACTATED RINGERS 1,000 ML 250 ML IV CONT ×2 (18:35→22:18)
[2024-12-24 20:14] LABS: CRP 1.5 mg/dL (<1.0); Creatine Kinase 59 U/L (55-170)
[2024-12-24] MEDS: TAMSULOSIN HCL 0.4 MG CAPSULE PO (21:26)
--- NOTE | 2024-12-24 21:46 | ADMGEN ---
This patient, Bryon Rodney, was admitted to IMU Room 205-01. Patient/family oriented to hospital policies and general routines including ID bracelet, bed and alarms, visiting hours, pain management, procedures, bathroom and other care routines, personal items, smoking policy, room service/diet, and visiting hours. Information on how to activate the Rapid Response Team has been discussed. Patient/Family are encouraged to report perceived risks to care and to ask questions if they do not understand what they are told or what they should do.
[2024-12-24 22:58] LABS: Anion Gap 12 mmol/L (4-12); Blood Urea Nitrogen 57 mg/dL (9-20); Calcium 9.9 mg/dL (8.4-10.2); Carbon Dioxide 19 mmol/L (22-30); Chloride 112 mmol/L (98-107); Estimated CRCL calculation 24 ml/min; Estimated Glomerular Filt Rate 18; Glucose 123 mg/dL (65-110); Potassium 5.1 mmol/L (3.4-5.0); Sodium 143 mmol/L (137-145)
[2024-12-24 23:14] LABS: Total Protein Urine Random > 600 mg/dL; Ur Ttl Prot Creatinine Ratio > 8.56 mg/mg (0-0.20)
[2024-12-25] VITALS (16 sets, daily range): BP systolic 124–155; BP diastolic 75–90; PULSE 77–102; RESP 14–18; TEMP 36.6–37.5; O2SAT 93–98
[2024-12-25 04:14] LABS: Hematocrit 40.8 % (42.0-52.0); Hemoglobin 13.3 g/dL (14.0-18.0); Immature Granulocyte Percent A 0.3 % (0-0.5); Lymphocytes Absolute Auto 0.74 K/mm3 (0.9-3.2); Mean Corpuscular HGB Conc 32.6 g/dl (32-36); Mean Corpuscular Hemoglobin 27.8 pg (26-34); Mean Corpuscular Volume 85.4 fl (80-100); Nucleated Red Blood Cells Absolute Auto 0.000 K/mm3 (0.0-0.012); Nucleated Red Blood Cells Perc 0.0 % (0.0-0.2); Platelet Count Result 147 k/mm3 (150-375); Red Blood Count 4.78 M/mm3 (4.6-6.20); White Blood Count 6.4 K/mm3 (4.5-10.0)
[2024-12-25 04:38] LABS: Alanine Aminotransferase 58 U/L (6-50); Albumin Level 4.1 g/dL (3.5-5.1); Alkaline Phosphatase 81 U/L (38-126); Anion Gap 10 mmol/L (4-12); Aspartate Amino Transferase 28 U/L (17-59); Bilirubin,Total 0.6 mg/dL (0.2-1.3); Blood Urea Nitrogen 37 mg/dL (9-20); Calcium 10.2 mg/dL (8.4-10.2); Carbon Dioxide 21 mmol/L (22-30); Chloride 111 mmol/L (98-107); Estimated CRCL calculation 41 ml/min; Estimated Glomerular Filt Rate 33; Glucose 125 mg/dL (65-110); Magnesium 1.8 mg/dL (1.6-2.3); Potassium 5.3 mmol/L (3.4-5.0); Sodium 142 mmol/L (137-145); Total Protein 7.4 g/dL (6.3-8.2)
[2024-12-25] MEDS: FINASTERIDE 5 MG TABLET PO (08:40)
--- NOTE | 2024-12-25 11:05 | P.CONNP_ITS ---
Assessment and Plan Assessment and plan (1) Acute kidney failure: Qualifiers: Acute renal failure type: unspecified Qualified Code(s): N17.9 - Acute kidney failure, unspecified Code(s): N17.9 - Acute kidney failure, unspecified Status: Acute Assessment and Plan: * as noted on admission * presumably normal renal function at baseline * ongoing improvement in creatinine since admission with supportive therapy * presumed etiology of SAULO is obstructive uropathy * imaging and urine studies noted * on IVFs * continue supportive therapy (2) Enlarged prostate with urinary retention: Code(s): N40.1 - Benign prostatic hyperplasia with lower urinary tract symptoms; R33.8 - Other retention of urine Status: Acute Assessment and Plan: * Urology recommendations noted * maintain indwelling Chanel catheter, will need to be maintained 70 14 days post discharge for bladder decompression * empiric antibiotics for suspected UTI * tamsulosin and finasteride * outpatient urology follow-up for definitive surgical management options (3) Suspected UTI: Code(s): R39.89 - Other symptoms and signs involving the genitourinary system Status: Acute Assessment and Plan: * suspected based on admission UA: * 2+ blood, positive nitrates, 2+ leuks, 11-20 WBC with no epithelial cells or bacteria * urine culture with no growth to date * on antibiotics I will continue to follow the patient with you while he remains hospitalized and make further recommendations as deemed necessary. Thank you for allowing me to participate in the care of this patient. L History of Present Illness Reason for Consult Consult date: 12/25/24 Reason for consult: acute renal failure Chief Complaint Chief complaint: Obstructive Uropathy and Renal Failure History of Present Illness Narrative: The patient is a 64 y/o male with a past medical history as outlined below who presented to [facility] ER with compliants of nausea, urinary frequency/urgency, and intermittent incontinence. The patient reports these urinary symptoms have been ongoing for the past month if not longer. However, his nausea presented several days ago. He denies any symptoms of fever, chills, abdominal pain, diarrhea, chest pain, shortness of breath, dizziness or lightheadedness. As he the nausea seems to persists along with his urinary symtoms, he presented to the ER for further assessment. On presenation to the ER, he was afebrile and hemodynamically stable but quite hypertensive with a systolic BP > 200. Routine testing was done which noted no leukocytosis, hemoglobin 11.5, potassium 6.2, BUN 127, creatinine greater than 14, glucose 128, and a UA suspicious for UTI. Bladder scan was performed and he was noted to have 1600cc of urine present. A chanel placed and he drained 2 L fairly quickly. Urology was consulted who recommend continued chanel catheter for bladder decompression. He received medical management for his hyperkalemia and subsequent was admitted to the hospital for further evaluation and therapy. Since his admission, continues to make fairly good amount of urine via his Chanel catheter as creatinine has come down significantly as noted by his laboratory trend since admission. Urology has already seen the patient has recommended continued for catheter care and Chanel catheter on discharge to ensure complete and total decompression of his bladder from the urinary retention with outpatient follow-up. Renal consultation was requested due to his acute kidney injury/acute renal failure. Unfortunately, have no previous labs to compare to with regard to his renal function the past but presumably since he has no other significant medical history other than BPH, his renal function was relatively normal prior to this hospitalization/admission. as already mentioned, his renal function has significantly improved since Chanel catheter placement with his creatinine going from greater than 14 to 3.49, to 2.0 mg/dL by today's labs. His BUN has precipitously improved as well. Currently, at the time my evaluation, he appears to be in no acute distress. Review of Systems 2 Review of Systems: As per HPI. [facility] Past Medical History Medical History Hernia BPH (benign prostatic hyperplasia) Surgical History Surgical History History of mandibular surgery History of shoulder surgery Family History Family History Father Congestive heart failure Mother Aneurysm Social History Social History Smoking status: Never smoker Alcohol intake: current Drinks per week: 4 Substance use: never Do You Feel Safe in your Home?: Yes Lack of Transportation: No Lack of Food: Never True Current Housing: I Have Housing Concerned About Future Housing: No Difficulty Paying Gas/Electric Bills: No Difficulty Paying for Meds: No Currently Unemployed: No Education: Trade/Vocational Certificate Difficulty w/ Childcare or Family Care: No Spiritual care concerns: No Meds Home Medications and Allergies Home Medications ?Medication ?Instructions ?Recorded ?Confirmed ?Type cephalexin 500 mg capsule 500 mg PO Q12H #10 caps 12/26/24 Rx finasteride 5 mg tablet (Proscar) 5 mg PO QAM #30 tabs 12/26/24 Rx tamsulosin 0.4 mg capsule 0.4 mg PO HS #30 caps 12/26/24 Rx Allergies Allergy/AdvReac Type Severity Reaction Status Date / Time No Known Allergies Allergy Unverified 12/24/24 12:05 Vital Signs Vital Signs Temp Pulse Resp BP Pulse Ox O2 Del Method 12/25/24 11:00 98.3 F 86 14 133/81 94 12/25/24 10:00 89 12/25/24 08:00 84 12/25/24 07:39 98.1 F 98 14 124/80 97 12/25/24 06:00 99 12/25/24 04:00 97.8 F 88 14 145/90 H 96 12/25/24 04:00 Room Air 12/25/24 04:00 85 12/25/24 02:00 84 12/25/24 00:00 97.8 F 82 14 154/86 H 97 12/25/24 00:00 Room Air 12/25/24 00:00 77 12/24/24 22:00 Room Air 12/24/24 22:00 76 12/24/24 21:55 98.2 F 81 14 170/93 H 99 12/24/24 21:34 98.3 F 72 18 164/87 H 99 12/24/24 19:26 97.5 F L 75 18 149/88 H 98 12/24/24 19:02 73 18 149/88 H 99 Exam 2 Narrative: GENERAL APPEARANCE: well developed well nourished male in no acute distress HEENT: normocephalic, atraumatic, normal conjunctiva and sclera, nares patient NECK: no lymphadenopathy, thyromegaly, or JVD MOUTH: normal lips, teeth, and gums CARDIOVASCULAR: RRR, normal S1 and S2, no rub RESPIRATORY: clear to auscultation bilaterally ABDOMEN: soft, nontender, nondistended, positive bowel sounds present EXTREMITIES: no evidence of cyanosis, clubbing, or edema NEUROLOGICAL: alert and oriented x 3; CN II - XII intact bilaterally; no focal deficits noted Results Lab Results 12/26/24 03:29 12/26/24 03:29 Lab results: Most recent lab results Calcium 10.2 mg/dL (8.4-10.2) 12/25/24 04:00 Phosphorus 3.3 mg/dL (2.5-4.5) 12/25/24 04:00 Magnesium 1.8 mg/dL (1.6-2.3) 12/25/24 04:00 Urine Creatinine 69.8 mg/dL 12/24/24 21:53 Urine Creatinine 70.1 mg/dL 12/24/24 21:53
--- NOTE | 2024-12-25 11:25 | PM.IMPN ---
Progress Note: A&P Assessment and Plan (1) Acute kidney failure: Qualifiers: Acute renal failure type: unspecified Qualified Code(s): N17.9 - Acute kidney failure, unspecified Code(s): N17.9 - Acute kidney failure, unspecified Status: Acute Assessment and Plan: - creatinine greater than 14, BUN 127, GFR 4. No previous available for comparison. - renal ultrasound with no hydronephrosis. 1.6 cm indeterminate left adrenal lesion possibly representing cyst with wall calcification or agitation nephrolith. Outpatient follow-up. Incidental note of echogenic liver most commonly due to steatosis but can also be seen with hepatitis and fibrosis. -CK normal - UA suggestive of UTI, see below - bladder scan in ED showed 1600 mL on 12/24, chanel placed on 12/24 with 2L out - monitor I&Os - hold xander inhibitors and diuretics as appropriate - nephrology consultation Creatinine continues to improve down to 2. Suspect acute renal failure secondary to obstructive uropathy due to BPH. Chanel placed. Continue IV fluids. Postobstructive diuresis noted. Will restart IV fluid (2) Enlarged prostate with urinary retention: Code(s): N40.1 - Benign prostatic hyperplasia with lower urinary tract symptoms; R33.8 - Other retention of urine Status: Acute Assessment and Plan: - started on Flomax and finasteride as ordered. - Urology consulted Maintain indwelling Chanel catheter, will need to be maintained 70 14 days post discharge for bladder decompression On ceftriaxone for empiric treatment of UTI Will need outpatient urology follow-up for definitive surgical management options, can follow up with his previous urologist at [facility] or Urology of [facility]. Patient elected to f/u with [facility] due to insurance. (3) Suspected UTI: Code(s): R39.89 - Other symptoms and signs involving the genitourinary system Status: Acute Assessment and Plan: - UA: 2+ blood, positive nitrates, 2+ leuks, 11-20 WBC with no epithelial cells or bacteria - UC pending - no previous micro available for review - started on Ceftriaxone on 12/24. Follow urine culture Plan Left renal lesion likely cyst. Follow-up as an outpatient basis with CT/MRI Echogenic liver likely a patent steatosis follow-up as an outpatient basis Hyperkalemia mild improving re-dose Lokelma today recheck in a.m. Diet: Renal GI Prophylaxis: NA DVT Prophylaxis: SCDs IV fluids: 1L bolus -> LR at 200 mL/hr x2L Lines/Tubes: Peripheral IV, Chanel Code Status: Full code Subjective Date/time seen: 12/25/24 11:25 Interval history: No overnight events. Feeling better. Denies any abdominal pain. No nausea vomiting. Labs reviewed. Review of Systems Review of Systems: All systems reviewed & are unremarkable except as noted in HPI and below Exam Narrative: GENERAL: The patient is well developed, not in acute distress HEENT: Nonicteric sclerae, PERRLA, EOMI. Oropharynx clear. Moist mucous membranes. Conjunctivae appear well perfused. CHEST: Chest wall is nontender. HEART: Regular rate and rhythm without murmur, rubs, or gallops LUNGS: Clear to auscultation bilaterally. no respiratory distress ABDOMEN: Soft, positive bowel sounds, non-tender, no organomegaly. Chanel catheter in-situ with dark urine in bag SKIN: No rash, no excessive bruising, petechiae, or purpura. NEUROLOGIC: Cranial nerves II-XII intact, alert and oriented x 3, no gross motor deficits EXTREMITIES: no edema, cyanosis or clubbing Objective Data Vital Signs Vital Signs: Vital Signs - 24 hr 12/24/24 12:01 12/24/24 12:17 12/24/24 12:30 Temperature 97.6 F Pulse Rate 95 89 81 Respiratory Rate 16 16 19 Blood Pressure 227/116 H 190/84 H 180/84 H Pulse Oximetry 98 97 97 Oxygen Delivery 12/24/24 12:33 12/24/24 13:02 12/24/24 13:30 Temperature Pulse Rate 79 82 73 Respiratory Rate 16 17 15 Blood Pressure 180/84 H 187/91 H 162/80 H Pulse Oximetry 96 97 97 Oxygen Delivery Room Air 12/24/24 14:00 12/24/24 15:38 12/24/24 16:31 Temperature Pulse Rate 79 86 97 Respiratory Rate 19 15 20 Blood Pressure 184/94 H 177/92 H 189/100 H Pulse Oximetry 98 96 100 Oxygen Delivery 12/24/24 17:01 12/24/24 19:02 12/24/24 19:26 Temperature 97.5 F L Pulse Rate 91 73 75 Respiratory Rate 15 18 18 Blood Pressure 177/98 H 149/88 H 149/88 H Pulse Oximetry 97 99 98 Oxygen Delivery 12/24/24 21:34 12/24/24 21:55 12/24/24 22:00 Temperature 98.3 F 98.2 F Pulse Rate 72 81 76 Respiratory Rate 18 14 Blood Pressure 164/87 H 170/93 H Pulse Oximetry 99 99 Oxygen Delivery 12/24/24 22:00 12/25/24 00:00 12/25/24 00:00 Temperature Pulse Rate 77 Respiratory Rate Blood Pressure Pulse Oximetry Oxygen Delivery Room Air Room Air 12/25/24 00:00 12/25/24 02:00 12/25/24 04:00 Temperature 97.8 F Pulse Rate 82 84 85 Respiratory Rate 14 Blood Pressure 154/86 H Pulse Oximetry 97 Oxygen Delivery 12/25/24 04:00 12/25/24 04:00 12/25/24 06:00 Temperature 97.8 F Pulse Rate 88 99 Respiratory Rate 14 Blood Pressure 145/90 H Pulse Oximetry 96 Oxygen Delivery Room Air 12/25/24 07:39 Temperature 98.1 F Pulse Rate 98 Respiratory Rate 14 Blood Pressure 124/80 Pulse Oximetry 97 Oxygen Delivery Intake/Output Intake/Output: Intake & Output 12/22/24 12/23/24 12/24/24 12/25/24 23:59 23:59 23:59 23:59 Intake Total 2029.2 1240 Output Total 3800 4600 Balance -1770.8 -3360 Meds/Results Medications: Active Medications Generic Name Dose Route Start Last Admin Trade Name Freq PRN Reason Stop Dose Admin Finasteride 5 mg 12/25/24 09:00 12/25/24 08:40 Finasteride 5 Mg Tablet PO 5 mg QAM ERAN Administration Ceftriaxone Sodium 1 gm/ 50 mls @ 100 mls/hr 12/24/24 17:35 12/24/24 18:19 Sodium Chloride IVPB Infused Q24H ERAN Infusion Tamsulosin HCl 0.4 mg 12/24/24 21:00 12/24/24 21:26 Tamsulosin Hcl 0.4 Mg Capsule PO 0.4 mg HS ERAN Administration Radiology Results: ITS Impressions Abdomen X-Ray 12/24/24 14:30 IMPRESSION: NO ACUTE ABDOMINAL FINDINGS. Renal Ultrasound 12/24/24 20:09 IMPRESSION: No hydronephrosis. 1.6 cm indeterminate left renal lesion, possibly representing a cyst with wall calcification or adjacent nephrolith. Recommend timely outpatient CT or MRI without and with contrast for complete evaluation. Incidental note of and echogenic liver, most commonly due to steatosis but also can be seen with hepatitis and fibrosis Labs Labs: Laboratory Results - last 24 hr 12/24/24 12/24/24 12/24/24 12:41 12:52 15:29 WBC 5.6 RBC 4.13 L Hgb 11.5 L Hct 35.6 L MCV 86.2 MCH 27.8 MCHC 32.3 RDW 14.1 Plt Count 124 L MPV 10.6 H Immature Gran % (Auto) 0.5 Neut % (Auto) 70.1 Lymph % (Auto) 11.7 L [place] % (Auto) 11.0 H Eos % (Auto) 6.2 H Baso % (Auto) 0.5 Lymph # (Auto) 0.66 L [place] # (Auto) 0.6 Eos # (Auto) 0.4 H Baso # (Auto) 0.0 Abs Immat Gran (auto) 0.03 Absolute Neuts (auto) 4.0 Absolute Nucleated RBC 0.000 Nucleated RBC % 0.0 Sodium 140 Potassium 6.2 H* Chloride 110 H Carbon Dioxide 12 L Anion Gap 18 H BUN 127 H* Creatinine > 14.00 H Estim Creat Clear Calc 6 Estimated GFR 4 L Glucose 128 H POC Capillary Glucose 125 H Calcium 9.6 Phosphorus Magnesium Total Bilirubin 0.6 AST 23 ALT 60 H Alkaline Phosphatase 70 Total Creatine Kinase 59 C-Reactive Protein 1.5 H Total Protein 7.2 Albumin 4.3 Urine Color Yellow Urine Appearance Clear Urine pH 5.0 Ur Specific [place] 1.012 Urine Protein Negative Urine Glucose (UA) Negative Urine Ketones Negative Ur Blood (Man) 2+ H Urine Nitrate Positive H Urine Bilirubin Negative Urine Urobilinogen 0.2 Add Ur Microanalysis Reviewed Leukocyte Esterase Rfl 2+ H Urine RBC 0-2 Urine WBC 11-20 H Ur Squamous Epith Cells None seen Urine Bacteria None seen Urine Casts 0-2 U Random Total Protein Ur Random Sodium Ur Random Potassium Urine Creatinine Protein/Creat Ratio 2 12/24/24 12/24/24 12/24/24 21:53 21:53 22:16 WBC RBC Hgb Hct MCV MCH MCHC RDW Plt Count MPV Immature Gran % (Auto) Neut % (Auto) Lymph % (Auto) [place] % (Auto) Eos % (Auto) Baso % (Auto) Lymph # (Auto) [place] # (Auto) Eos # (Auto) Baso # (Auto) Abs Immat Gran (auto) Absolute Neuts (auto) Absolute Nucleated RBC Nucleated RBC % Sodium 143 Potassium 5.1 H Chloride 112 H Carbon Dioxide 19 L Anion Gap 12 BUN 57 H D Creatinine 3.49 H Estim Creat Clear Calc 24 Estimated GFR 18 L Glucose 123 H POC Capillary Glucose Calcium 9.9 Phosphorus Magnesium Total Bilirubin AST ALT Alkaline Phosphatase Total Creatine Kinase C-Reactive Protein Total Protein Albumin Urine Color Urine Appearance Urine pH Ur Specific [place] Urine Protein Urine Glucose (UA) Urine Ketones Ur Blood (Man) Urine Nitrate Urine Bilirubin Urine Urobilinogen Add Ur Microanalysis Leukocyte Esterase Rfl Urine RBC Urine WBC Ur Squamous Epith Cells Urine Bacteria Urine Casts U Random Total Protein > 600 Ur Random Sodium 106 Ur Random Potassium 27.9 Urine Creatinine 70.1 69.8 Protein/Creat Ratio 2 > 8.56 H 15/ 04:00 WBC 6.4 RBC 4.78 Hgb 13.3 L Hct 40.8 L MCV 85.4 MCH 27.8 MCHC 32.6 RDW 14.0 Plt Count 147 L MPV 10.2 Immature Gran % (Auto) 0.3 Neut % (Auto) 70.5 Lymph % (Auto) 11.6 L [place] % (Auto) 13.5 H Eos % (Auto) 3.6 Baso % (Auto) 0.5 Lymph # (Auto) 0.74 L [place] # (Auto) 0.9 H Eos # (Auto) 0.2 Baso # (Auto) 0.0 Abs Immat Gran (auto) 0.02 Absolute Neuts (auto) 4.5 Absolute Nucleated RBC 0.000 Nucleated RBC % 0.0 Sodium 142 Potassium 5.3 H Chloride 111 H Carbon Dioxide 21 L Anion Gap 10 BUN 37 H D Creatinine 2.02 H Estim Creat Clear Calc 41 Estimated GFR 33 L Glucose 125 H POC Capillary Glucose Calcium 10.2 Phosphorus 3.3 Magnesium 1.8 Total Bilirubin 0.6 AST 28 ALT 58 H Alkaline Phosphatase 81 Total Creatine Kinase C-Reactive Protein Total Protein 7.4 Albumin 4.1 Urine Color Urine Appearance Urine pH Ur Specific [place] Urine Protein Urine Glucose (UA) Urine Ketones Ur Blood (Man) Urine Nitrate Urine Bilirubin Urine Urobilinogen Add Ur Microanalysis Leukocyte Esterase Rfl Urine RBC Urine WBC Ur Squamous Epith Cells Urine Bacteria Urine Casts U Random Total Protein Ur Random Sodium Ur Random Potassium Urine Creatinine Protein/Creat Ratio 2
[2024-12-25] MEDS: SODIUM ZIRCONIUM CYCLOSILICATE 10 GM POWD.PACK PO (11:55)
[2024-12-25] MEDS: SODIUM CHLORIDE 0.9% IV 1,000 ML 100 ML IV CONT ×2 (11:56→20:07)
[2024-12-25] MEDS: TAMSULOSIN HCL 0.4 MG CAPSULE PO (20:06)
[2024-12-25] MEDS: cefTRIAXone 1 GM in SODIUM CHLORIDE 0.9% IV 50 ML 100 ML IVPB (20:06)
[2024-12-26] VITALS: PULSE 83
[2024-12-26 04:00] VITALS: PULSE 80
[2024-12-26 04:07] LABS: Hematocrit 39.7 % (42.0-52.0); Hemoglobin 12.8 g/dL (14.0-18.0); Immature Granulocyte Percent A 0.4 % (0-0.5); Lymphocytes Absolute Auto 1.32 K/mm3 (0.9-3.2); Mean Corpuscular HGB Conc 32.2 g/dl (32-36); Mean Corpuscular Hemoglobin 27.8 pg (26-34); Mean Corpuscular Volume 86.3 fl (80-100); Nucleated Red Blood Cells Absolute Auto 0.000 K/mm3 (0.0-0.012); Nucleated Red Blood Cells Perc 0.0 % (0.0-0.2); Platelet Count Result 161 k/mm3 (150-375); Red Blood Count 4.60 M/mm3 (4.6-6.20); White Blood Count 7.1 K/mm3 (4.5-10.0)
[2024-12-26 04:25] LABS: Alanine Aminotransferase 55 U/L (6-50); Albumin Level 3.7 g/dL (3.5-5.1); Alkaline Phosphatase 69 U/L (38-126); Anion Gap 9 mmol/L (4-12); Aspartate Amino Transferase 29 U/L (17-59); Bilirubin,Total 0.5 mg/dL (0.2-1.3); Blood Urea Nitrogen 17 mg/dL (9-20); Calcium 9.1 mg/dL (8.4-10.2); Carbon Dioxide 19 mmol/L (22-30); Chloride 109 mmol/L (98-107); Estimated CRCL calculation 92 ml/min; Estimated Glomerular Filt Rate > 60; Glucose 110 mg/dL (65-110); Magnesium 1.8 mg/dL (1.6-2.3); Potassium 4.2 mmol/L (3.4-5.0); Sodium 137 mmol/L (137-145); Total Protein 6.4 g/dL (6.3-8.2)
[2024-12-26] MEDS: SODIUM CHLORIDE 0.9% IV 1,000 ML 100 ML IV CONT (06:02)
[2024-12-26 07:58] VITALS: BP 135/94; PULSE 100; RESP 16; TEMP 36.9; O2SAT 97
[2024-12-26 08:00] VITALS: PULSE 93
--- NOTE | 2024-12-26 08:24 | PM.IMPN ---
Progress Note: A&P Assessment and Plan (1) Acute kidney failure: Qualifiers: Acute renal failure type: unspecified Qualified Code(s): N17.9 - Acute kidney failure, unspecified Code(s): N17.9 - Acute kidney failure, unspecified Status: Acute Assessment and Plan: - creatinine greater than 14, BUN 127, GFR 4. No previous available for comparison. - renal ultrasound with no hydronephrosis. 1.6 cm indeterminate left adrenal lesion possibly representing cyst with wall calcification or agitation nephrolith. Outpatient follow-up. Incidental note of echogenic liver most commonly due to steatosis but can also be seen with hepatitis and fibrosis. -CK normal - UA suggestive of UTI, see below - bladder scan in ED showed 1600 mL on 12/24, chanel placed on 12/24 with 2L out - monitor I&Os - hold xander inhibitors and diuretics as appropriate - nephrology consultation Creatinine continues to improve down to 2. Suspect acute renal failure secondary to obstructive uropathy due to BPH. Chanel placed. Continue IV fluids. Postobstructive diuresis noted. Restarted IV fluid Renal failure has resolved (2) Enlarged prostate with urinary retention: Code(s): N40.1 - Benign prostatic hyperplasia with lower urinary tract symptoms; R33.8 - Other retention of urine Status: Acute Assessment and Plan: - started on Flomax and finasteride as ordered. - Urology consulted Maintain indwelling Chanel catheter, will need to be maintained 70 14 days post discharge for bladder decompression On ceftriaxone for empiric treatment of UTI Will need outpatient urology follow-up for definitive surgical management options, can follow up with his previous urologist at [facility] or Urology of [facility]. Patient elected to f/u with [facility] due to insurance. Still having blood in urine. Await Urology evaluation (3) Suspected UTI: Code(s): R39.89 - Other symptoms and signs involving the genitourinary system Status: Acute Assessment and Plan: - UA: 2+ blood, positive nitrates, 2+ leuks, 11-20 WBC with no epithelial cells or bacteria - UC pending - no previous micro available for review - started on Ceftriaxone on 12/24. Follow urine culture Plan Left renal lesion likely cyst. Follow-up as an outpatient basis with CT/MRI Echogenic liver likely a patent steatosis follow-up as an outpatient basis Hyperkalemia mild improving re-dose Lokelma today recheck in a.m. Diet: Renal GI Prophylaxis: NA DVT Prophylaxis: SCDs IV fluids: 1L bolus -> LR at 200 mL/hr x2L Lines/Tubes: Peripheral IV, Chanel Code Status: Full code Subjective Date/time seen: 12/26/24 08:24 Interval history: Intermittent blood in urine still noted. No other complaints. Hoping to go home. Review of Systems Review of Systems: All systems reviewed & are unremarkable except as noted in HPI and below Exam Narrative: GENERAL: The patient is well developed, not in acute distress HEENT: Nonicteric sclerae, PERRLA, EOMI. Oropharynx clear. Moist mucous membranes. Conjunctivae appear well perfused. CHEST: Chest wall is nontender. HEART: Regular rate and rhythm without murmur, rubs, or gallops LUNGS: Clear to auscultation bilaterally. no respiratory distress ABDOMEN: Soft, positive bowel sounds, non-tender, no organomegaly. Chanel catheter in-situ with pinkish urine in bag SKIN: No rash, no excessive bruising, petechiae, or purpura. NEUROLOGIC: Cranial nerves II-XII intact, alert and oriented x 3, no gross motor deficits EXTREMITIES: no edema, cyanosis or clubbing Objective Data Vital Signs Vital Signs: Vital Signs - 24 hr 12/25/24 10:00 12/25/24 11:30 12/25/24 12:00 Temperature 98.3 F Pulse Rate 89 86 102 H Respiratory Rate 14 Blood Pressure 133/81 Pulse Oximetry 94 Oxygen Delivery 12/25/24 14:00 12/25/24 15:58 12/25/24 16:00 Temperature 99.5 F Pulse Rate 88 96 101 H Respiratory Rate 14 Blood Pressure 138/81 Pulse Oximetry 96 Oxygen Delivery 12/25/24 19:59 12/25/24 20:00 12/25/24 20:00 Temperature 97.9 F Pulse Rate 86 89 Respiratory Rate 16 Blood Pressure 155/75 H Pulse Oximetry 98 Oxygen Delivery Room Air 12/25/24 20:57 12/25/24 23:25 12/25/24 23:40 Temperature 98.5 F Pulse Rate 87 Respiratory Rate 18 Blood Pressure 140/79 Pulse Oximetry 94 93 Oxygen Delivery Room Air Room Air 12/26/24 00:00 12/26/24 04:00 12/26/24 07:58 Temperature 98.4 F Pulse Rate 83 80 100 Respiratory Rate 16 Blood Pressure 135/94 H Pulse Oximetry 97 Oxygen Delivery Intake/Output Intake/Output: Intake & Output 12/23/24 12/24/24 12/25/24 12/26/24 23:59 23:59 23:59 23:59 Intake Total 2029.2 2608.3 1211.7 Output Total 3800 6050 1850 Balance -1770.8 -3441.7 -638.3 Meds/Results Medications: Active Medications Generic Name Dose Route Start Last Admin Trade Name Freq PRN Reason Stop Dose Admin Finasteride 5 mg 12/25/24 09:00 12/25/24 08:40 Finasteride 5 Mg Tablet PO 5 mg QAM ERAN Administration Sodium Chloride 1,000 mls @ 100 mls/hr 12/25/24 11:30 12/26/24 06:02 Normal Saline Iv IV CONT 100 mls/hr .Q10H ERAN Administration Ceftriaxone Sodium 1 gm/ 50 mls @ 100 mls/hr 12/25/24 21:00 12/25/24 20:36 Sodium Chloride IVPB Infused Q24H ERAN Infusion Tamsulosin HCl 0.4 mg 12/24/24 21:00 12/25/24 20:06 Tamsulosin Hcl 0.4 Mg Capsule PO 0.4 mg HS ERAN Administration Radiology Results: ITS Impressions Abdomen X-Ray 12/24/24 14:30 IMPRESSION: NO ACUTE ABDOMINAL FINDINGS. Renal Ultrasound 12/24/24 20:09 IMPRESSION: No hydronephrosis. 1.6 cm indeterminate left renal lesion, possibly representing a cyst with wall calcification or adjacent nephrolith. Recommend timely outpatient CT or MRI without and with contrast for complete evaluation. Incidental note of and echogenic liver, most commonly due to steatosis but also can be seen with hepatitis and fibrosis Labs Labs: Laboratory Results - last 24 hr 12/26/24 03:29 WBC 7.1 RBC 4.60 Hgb 12.8 L Hct 39.7 L MCV 86.3 MCH 27.8 MCHC 32.2 RDW 13.7 Plt Count 161 MPV 10.9 H Immature Gran % (Auto) 0.4 Neut % (Auto) 60.0 Lymph % (Auto) 18.7 [place] % (Auto) 14.0 H Eos % (Auto) 6.2 H Baso % (Auto) 0.7 Lymph # (Auto) 1.32 [place] # (Auto) 1.0 H Eos # (Auto) 0.4 H Baso # (Auto) 0.1 Abs Immat Gran (auto) 0.03 Absolute Neuts (auto) 4.2 Absolute Nucleated RBC 0.000 Nucleated RBC % 0.0 Sodium 137 Potassium 4.2 Chloride 109 H Carbon Dioxide 19 L Anion Gap 9 BUN 17 D Creatinine 0.87 Estim Creat Clear Calc 92 Estimated GFR > 60 Glucose 110 Calcium 9.1 Magnesium 1.8 Total Bilirubin 0.5 AST 29 ALT 55 H Alkaline Phosphatase 69 Total Protein 6.4 Albumin 3.7
--- NOTE | 2024-12-26 08:25 | PM.DS ---
DS: Admitting Diagnosis Discharge Date 12/26/2024 Admitting Diagnosis Acute renal failure DS: Discharge Diagnosis Discharge Diagnosis (1) Acute kidney failure: Qualifiers: Acute renal failure type: unspecified Qualified Code(s): N17.9 - Acute kidney failure, unspecified Code(s): N17.9 - Acute kidney failure, unspecified Status: Acute (2) Enlarged prostate with urinary retention: Code(s): N40.1 - Benign prostatic hyperplasia with lower urinary tract symptoms; R33.8 - Other retention of urine Status: Acute (3) Suspected UTI: Code(s): R39.89 - Other symptoms and signs involving the genitourinary system Status: Acute DS: Summary Hospital Course Hospital Course: # Acute kidney failure: - creatinine greater than 14, BUN 127, GFR 4 on admission. No previous available for comparison. - renal ultrasound with no hydronephrosis. 1.6 cm indeterminate left adrenal lesion possibly representing cyst with wall calcification or agitation nephrolith. Outpatient follow-up. Incidental note of echogenic liver most commonly due to steatosis but can also be seen with hepatitis and fibrosis. -CK normal - UA suggestive of UTI, see below - bladder scan in ED showed 1600 mL on 12/24, chanel placed on 12/24 with 2L out - monitor I&Os - hold xander inhibitors and diuretics as appropriate - nephrology consultation Creatinine continues to improve down to 2 and normalized by the time of discharge. Suspect acute renal failure secondary to obstructive uropathy due to BPH. Chanel placed. Continue IV fluids. Postobstructive diuresis noted. Restarted on IV fluid. To maintain hydration # Enlarged prostate with urinary retention: - started on Flomax and finasteride as ordered. - Urology consulted Maintain indwelling Chanel catheter, will need to be maintained 70 14 days post discharge for bladder decompression On ceftriaxone for empiric treatment of UTI Will need outpatient urology follow-up for definitive surgical management options, can follow up with his previous urologist at [facility] or [facility] of [facility]. Patient elected to f/u with [facility] due to insurance. Still has some blood in urine. Likely will be intermittent. Follow-up as an outpatient basis. urology okay with hematuria expected to slowly improve # Suspected UTI: - UA: 2+ blood, positive nitrates, 2+ leuks, 11-20 WBC with no epithelial cells or bacteria - UC no growth - no previous micro available for review - started on Ceftriaxone on 12/24. Follow urine culture. Switched to oral at discharge to finish the course # Left renal lesion likely cyst. Follow-up as an outpatient basis with CT/MRI # Echogenic liver likely a patent steatosis follow-up as an outpatient basis # Hyperkalemia mild improving re-dose Lokelma today recheck normal Code Status: Full code Time Spent with Patient Time attestation: Total time spent providing and/or coordinating discharge services: 45 minutes Exam Narrative: GENERAL: The patient is well developed, not in acute distress HEENT: Nonicteric sclerae, PERRLA, EOMI. Oropharynx clear. Moist mucous membranes. Conjunctivae appear well perfused. CHEST: Chest wall is nontender. HEART: Regular rate and rhythm without murmur, rubs, or gallops LUNGS: Clear to auscultation bilaterally. no respiratory distress ABDOMEN: Soft, positive bowel sounds, non-tender, no organomegaly. Chanel catheter in-situ with pinkish urine in bag SKIN: No rash, no excessive bruising, petechiae, or purpura. NEUROLOGIC: Cranial nerves II-XII intact, alert and oriented x 3, no gross motor deficits EXTREMITIES: no edema, cyanosis or clubbing DS: Data Data Completed and Pending Labs on day of discharge: Labs from last 24 hours 12/26/24 03:29 WBC 7.1 RBC 4.60 Hgb 12.8 L Hct 39.7 L MCV 86.3 MCH 27.8 MCHC 32.2 RDW 13.7 Plt Count 161 MPV 10.9 H Immature Gran % (Auto) 0.4 Neut % (Auto) 60.0 Lymph % (Auto) 18.7 [place] % (Auto) 14.0 H Eos % (Auto) 6.2 H Baso % (Auto) 0.7 Lymph # (Auto) 1.32 [place] # (Auto) 1.0 H Eos # (Auto) 0.4 H Baso # (Auto) 0.1 Abs Immat Gran (auto) 0.03 Absolute Neuts (auto) 4.2 Absolute Nucleated RBC 0.000 Nucleated RBC % 0.0 Sodium 137 Potassium 4.2 Chloride 109 H Carbon Dioxide 19 L Anion Gap 9 BUN 17 D Creatinine 0.87 Estim Creat Clear Calc 92 Estimated GFR > 60 Glucose 110 Calcium 9.1 Magnesium 1.8 Total Bilirubin 0.5 AST 29 ALT 55 H Alkaline Phosphatase 69 Total Protein 6.4 Albumin 3.7 Imaging Radiologist's impression: ITS Impressions Abdomen X-Ray 12/24/24 14:30 IMPRESSION: NO ACUTE ABDOMINAL FINDINGS. Renal Ultrasound 12/24/24 20:09 IMPRESSION: No hydronephrosis. 1.6 cm indeterminate left renal lesion, possibly representing a cyst with wall calcification or adjacent nephrolith. Recommend timely outpatient CT or MRI without and with contrast for complete evaluation. Incidental note of and echogenic liver, most commonly due to steatosis but also can be seen with hepatitis and fibrosis Discharge Plan Discharge Attending physician on discharge: Ton Bond Consulting providers: Adry Hickman; Richard Eaton Discharging Clinician: Ton Bond Anticipated Discharge Date/Time: 12/26/24 08:28 Patient Disposition: Home Activity: as tolerated Diet: regular Discharge Instructions: Home with Chanel catheter. Provided home supplies. Follow-up with Urology as an outpatient basis in 1-2 weeks. Patient Instructions: Antibiotic Form, Acute Kidney Injury (DC) Patient Language: German Stand Alone Forms: General Discharge Information Follow-up/Referrals: Richard Eaton MD [Physician] - 1 Week UNKNOWN,DOCTOR [Primary Care Provider] - 1 Week Discharge Medications: New finasteride [Proscar] 5 mg Tablet 5 mg PO QAM Qty: 30 0RF tamsulosin 0.4 mg Capsule 0.4 mg PO HS Qty: 30 0RF cephalexin 500 mg capsule 500 mg PO Q12H Qty: 10 0RF No Action No Home Medications Date of admission: 12/24/24 15:26 Primary Care Provider: UNKNOWN,DOCTOR Admitting Provider: Ton Bond Attending physician on admission: Ton Bond Condition: Stable
[2024-12-26] MEDS: FINASTERIDE 5 MG TABLET PO (08:45)
--- NOTE | 2024-12-26 09:33 | WPDUROPN2 ---
Progress Note: A&P Assessment and Plan (1) Enlarged prostate with urinary retention: Code(s): N40.1 - Benign prostatic hyperplasia with lower urinary tract symptoms; R33.8 - Other retention of urine Status: Acute (2) Acute kidney failure: Qualifiers: Acute renal failure type: unspecified Qualified Code(s): N17.9 - Acute kidney failure, unspecified Code(s): N17.9 - Acute kidney failure, unspecified Status: Acute (3) Suspected UTI: Code(s): R39.89 - Other symptoms and signs involving the genitourinary system Status: Acute Plan Pleasant 64yoM with large-volume acute urinary retention with post-void residual of 1653 mL, likely secondary to significant prostatomegaly (known BPH). This has led to obstructive uropathy and subsequent acute renal failure (creatinine >14). Urinalysis is suspicious for a urinary tract infection. - Patient ok to disharge from urology standpoint. discharge with catheter for a minimum of 7-14 days to allow for bladder decompression. - Continue tamsulosin at bedtime and finasteride in the morning at discharge to treat BPH. I counseled patient on medication compliance. -discussed flushing chanel PRN for clots. advised to call office or present to ER if catheter not draining or having suprapubic pain. Staff to reinforce teaching and send with piston syringe kit for irrigation. - Outpatient urology follow-up is recommended for formal prostate evaluation and discussion of definitive surgical management options, which may include Aquablation, Holmium Laser Enucleation of the Prostate (HoLEP), or prostate artery embolization. He was counseled that he may follow up with his previous urologist at [facility] or can establish care with [facility] [place]. Patient elects to follow up with [facility] due to insurance limitations. Subjective Subjective Date/Time Seen: 12/26/24 09:33 Interval history: hematuria without clots present in chanel bag. No other complaints. Review of Systems Constitutional: Constitutional: Reports no additional constitutional complaints Eyes: Eyes: Reports no additional eye complaints ENT: Reports Normal hearing present Cardiovascular: Cardiovascular: Denies chest pain Gastrointestinal: Gastrointestinal: Reports as per HPI Genitourinary: Genitourinary: Reports as per HPI Musculoskeletal: Musculoskeletal: Reports no additional musculoskeletal complaints Neurologic: Reports Normal hearing present Exam Const: General: comfortable and no acute distress Eyes: General: appearance normal, both eyes and all related structures Resp: Effort & Inspection: normal respiratory effort Urinary Catheter: Urinary Catheter: patent and draining and urine red (no clots) Skin: General skin exam: normal color Neuro: Speech: normal speech Psych: Mental Status: mental status grossly normal Objective Data Vital Signs Vital Signs: Vital Signs - 24 hr 12/25/24 10:00 12/25/24 11:30 12/25/24 12:00 Temperature 98.3 F Pulse Rate 89 86 102 H Respiratory Rate 14 Blood Pressure 133/81 Pulse Oximetry 94 Oxygen Delivery 12/25/24 14:00 12/25/24 15:58 12/25/24 16:00 Temperature 99.5 F Pulse Rate 88 96 101 H Respiratory Rate 14 Blood Pressure 138/81 Pulse Oximetry 96 Oxygen Delivery 12/25/24 19:59 12/25/24 20:00 12/25/24 20:00 Temperature 97.9 F Pulse Rate 86 89 Respiratory Rate 16 Blood Pressure 155/75 H Pulse Oximetry 98 Oxygen Delivery Room Air 12/25/24 20:57 12/25/24 23:25 12/25/24 23:40 Temperature 98.5 F Pulse Rate 87 Respiratory Rate 18 Blood Pressure 140/79 Pulse Oximetry 94 93 Oxygen Delivery Room Air Room Air 12/26/24 00:00 12/26/24 04:00 12/26/24 07:58 Temperature 98.4 F Pulse Rate 83 80 100 Respiratory Rate 16 Blood Pressure 135/94 H Pulse Oximetry 97 Oxygen Delivery Intake/Output Intake/Output: Intake & Output 12/23/24 12/24/24 12/25/24 12/26/24 23:59 23:59 23:59 23:59 Intake Total 2029.2 2608.3 1211.7 Output Total 3800 6050 1850 Balance -1770.8 -3441.7 -638.3 Meds/Results Medications: Active Medications Generic Name Dose Route Start Last Admin Trade Name Freq PRN Reason Stop Dose Admin Finasteride 5 mg 12/25/24 09:00 12/26/24 08:45 Finasteride 5 Mg Tablet PO 5 mg QAM ERAN Administration Sodium Chloride 1,000 mls @ 100 mls/hr 12/25/24 11:30 12/26/24 06:02 Normal Saline Iv IV CONT 100 mls/hr .Q10H ERAN Administration Ceftriaxone Sodium 1 gm/ 50 mls @ 100 mls/hr 12/25/24 21:00 12/25/24 20:36 Sodium Chloride IVPB Infused Q24H ERAN Infusion Tamsulosin HCl 0.4 mg 12/24/24 21:00 12/25/24 20:06 Tamsulosin Hcl 0.4 Mg Capsule PO 0.4 mg HS ERAN Administration Radiology Results: ITS Impressions Abdomen X-Ray 12/24/24 14:30 IMPRESSION: NO ACUTE ABDOMINAL FINDINGS. Renal Ultrasound 12/24/24 20:09 IMPRESSION: No hydronephrosis. 1.6 cm indeterminate left renal lesion, possibly representing a cyst with wall calcification or adjacent nephrolith. Recommend timely outpatient CT or MRI without and with contrast for complete evaluation. Incidental note of and echogenic liver, most commonly due to steatosis but also can be seen with hepatitis and fibrosis Labs Labs: Laboratory Results - last 24 hr 12/26/24 03:29 WBC 7.1 RBC 4.60 Hgb 12.8 L Hct 39.7 L MCV 86.3 MCH 27.8 MCHC 32.2 RDW 13.7 Plt Count 161 MPV 10.9 H Immature Gran % (Auto) 0.4 Neut % (Auto) 60.0 Lymph % (Auto) 18.7 [place] % (Auto) 14.0 H Eos % (Auto) 6.2 H Baso % (Auto) 0.7 Lymph # (Auto) 1.32 [place] # (Auto) 1.0 H Eos # (Auto) 0.4 H Baso # (Auto) 0.1 Abs Immat Gran (auto) 0.03 Absolute Neuts (auto) 4.2 Absolute Nucleated RBC 0.000 Nucleated RBC % 0.0 Sodium 137 Potassium 4.2 Chloride 109 H Carbon Dioxide 19 L Anion Gap 9 BUN 17 D Creatinine 0.87 Estim Creat Clear Calc 92 Estimated GFR > 60 Glucose 110 Calcium 9.1 Magnesium 1.8 Total Bilirubin 0.5 AST 29 ALT 55 H Alkaline Phosphatase 69 Total Protein 6.4 Albumin 3.7
[2024-12-26] MEDS: NACL 0.9% IRRIGATION POUR BOTTL 1,000 ML 2000 ML IRRIGATION (12:46)
[2024-12-27 05:07] LABS: Osmolality, Urine 514 mOsmol/kg (.)
== END 2024-12-26 13:45 | disposition home or self-care (01) | DRG 469 ==
LOC: ANHED 15:11 → ANHIMU 16:48
PROVIDERS: Student in an Organized Health Care Education/Training Program; Admitting Provider Internal Medicine; Emergency Provider Emergency Medicine; Visit Provider Internal Medicine
DX: N17.9 Acute kidney failure, unspecified (principal); N40.1 Benign prostatic hyperplasia with lower urinary tract symptoms; R33.8 Other retention of urine; K76.0 Fatty (change of) liver, not elsewhere classified; N28.1 Cyst of kidney, acquired; E87.5 Hyperkalemia
CPT/HCPCS: 36415; 74018; 76775; 80048; 80053; 81001; 82550; 82570; 82948; 83735; 83935; 84100; 84133; 84156; 84300; 85025; 86140; 87086; 93005; 96361; 96365; 96375; 99285; A9270; J0612; J0696; J1815; J7030; J7120